=== PATIENT | female | born 1955 | race Caucasian/White ===

== ENCOUNTER 2022-02-23 03:48 | Emergency (ER) | payer OTHER ==
[~2022-02-23] VITALS: Ht 144.8 cm; Wt 83.9 kg
--- NOTE | 2022-02-23 04:02 | NUR ---
Patient triaged and placed in ED RM 4. VSS and patient appears in no acute distress at this time. Accompanied by . MD Vogel notified of need for MSE. Report given to AGA Belle.
--- NOTE | 2022-02-23 04:04 | NUR ---
ER MD Vogel at bedside.
[2022-02-23] MEDS ORDERED: KETOROLAC TROMETHAMINE 30 MG VIAL IM ONE (04:15)
[2022-02-23] MEDS ORDERED: ACETAMINOPHEN 500 MG TABLET PO ONE (04:15)
--- NOTE | 2022-02-23 04:30 | NUR ---
Patient presents to ED from home with c/o left hip pain that radiates to knee x5days. Patient reports pain 8/10 at this time. Patient reports pain increases when putting pressure on LLE. Patient A/Ox4, VSS, ambulatory with assistance, resp even and unlabored. Patient lying in bed with safety precautions in place and connected to monitor. Patient's at bedside. Nad noted at this time.
--- NOTE | 2022-02-23 04:43 | NUR ---
xrays at bedside.
[2022-02-23 04:51] LABS: ANION GAP 10 (5-15); CALCIUM 9.2 mg/dL (8.4-11.0); CHLORIDE 105 mmol/L (98-107); CREATININE 1.09 mg/dL (0.55-1.30); GLUCOSE 179 mg/dL (70-99); UREA NITROGEN, BLOOD 31 mg/dL (8-21)
[2022-02-23 05:03] LABS: C-REACTIVE PROTEIN QUANT < 0.2 mg/dL (0-0.5); GFR AFRICAN AMERICAN 64 mL/min (>90)
--- NOTE | 2022-02-23 05:35 | NUR ---
Patient resting comfortably in bed with safety precautions in place. Patient's at bedside. Nad noted at this time.
[2022-02-23] MEDS ORDERED: DICL100G30 TP (05:58)
[2022-02-23 06:10] VITALS: BP_SYST 125
--- NOTE | 2022-02-23 06:10 | NUR ---
Patient given written and verbal discharge instructions and verbalizes understanding. ER MD discussed with patient the results and treatment provided. Patient in stable condition. ID arm band removed. Rx of diclofenac sodium given. Patient educated on pain management and to follow up with PMD. Pain Scale 3/10. Opportunity for questions provided and answered. Medication side effect fact sheet provided. Patient A/Ox4, VSS, resp even and unlabored. Patient in stable condition and accompanied by upon discharge.
[2022-02-23 06:29] LABS: BASOPHILS # (AUTO) 0.1 K/uL (0.0-0.2); BASOPHILS % (AUTO) 0.9 % (0.0-2.0); EOSINOPHILS # (AUTO) 0.5 K/uL (0.0-0.4); EOSINOPHILS % (AUTO) 4.8 % (0.0-4.0); HEMATOCRIT 43.8 % (36-48); HEMOGLOBIN 14.4 g/dL (12.0-16.0); LYMPHOCYTES # (AUTO) 1.8 K/uL (1.0-5.5); LYMPHOCYTES % (AUTO) 18.8 % (20.5-51.5); MEAN CORPUSCULAR HEMOGLOBIN 28 pg (27-31); MEAN CORPUSCULAR HGB CONC 33 % (32-36); MEAN CORPUSCULAR VOLUME 84 fL (79.0-98.0); MONOCYTES # (AUTO) 0.9 K/uL (0.0-1.0); MONOCYTES % (AUTO) 9.2 % (1.7-9.3); NEUTROPHILS # (AUTO) 6.3 K/uL (1.8-7.7); NEUTROPHILS % (AUTO) 66.3 % (40.0-70.0); PLATELET COUNT (AUTO) 364 K/uL (130-430); RED BLOOD CELL COUNT(AUTO) 5.19 MIL/uL (4.2-6.2); RED CELL DISTRIBUTION WIDTH 14.9 % (9.0-15.0); WHITE BLOOD COUNT (AUTO) 9.5 K/uL (4.8-10.8)
[2022-02-23 06:35] LABS: ERYTHROCYTE SEDIMENTATION RATE 2 MM/HR (0-20)
== END 2022-02-23 06:10 | disposition home or self-care (01) ==
LOC: SED 03:48
DX: M25.552 Pain in left hip (principal); M25.562 Pain in left knee; E11.9 Type 2 diabetes mellitus without complications; I10 Essential (primary) hypertension; E78.5 Hyperlipidemia, unspecified; Z88.2 Allergy status to sulfonamides; Z79.899 Other long term (current) drug therapy
CPT/HCPCS: 99284; 80048; 85025; 85651; 86140; 36415; 73502; 73564; 81002; 96372; J1885